=== PATIENT | female | born 1985 | race Caucasian/White ===

== ENCOUNTER → 2017-08-17 | Day surgery (SDC) | payer OTHER ==
[~2017-08-17] VITALS: Ht 175.3 cm; Wt 66.2 kg
[~2017-08-17] MED LIST: ACETAMINOPHEN500 M4 PO; AUGMENTIN 875 M1 TAB PO; BACTRIM DS 8001 TAB PO; BENTYL 10 MG CA10 MG PO; CANASA1000 MG RC; CLOBEX 125 ML125 ML TOP; CLOTRIMAZOLE-BE15 GM TOP; CORTIFOAM15 GM TOP; DESONIDE 0.05% TOP; DEXILANT60 M1 PO; DICYCLOMINE HCL10 M1 PO; FLONASE ALLERG9.9 ML NAS; LEVOTHYROXINE112 MCG PO; LEVOTHYROXINE125 MCG PO; LEVSIN/SL0.125 MG PO; LIDODERM1 EACH TOP; MULTIVITAMIN1 TAB PO; NITROFURANTOIN100 M6 PO; NYSTATIN100000 U/2 TOP; ONDANSETRON ODT4 MG PO; ORTHO EVRA TOP; PERCOCET 325 MG1 TA2 PO; PREDNISONE 10MG10 M1 PO; PREDNISONE 20MG20 MG PO; PRENATAL GUMMI1 EACH PO; PRENATAL TABLE1 EAC2 PO; RANITIDINE HCL75 MG PO; REMICADE100 MG INJ; REMICADE100 MG IV; TERCONAZOLE VG; TYLENOL #31 TAB PO; ULTRAM(MONOGRAP50 MG PO; VITAMIN D250000 UNIT PO; VITAMIN D31000 UNI2 PO; XULANE1 TDM TOP; [UNRECOGNIZED DRUG - OTHER] TOP
--- NOTE | 2017-08-17 09:15 | Operative Report ---
Operative/Inv Procedure Report Surgery Date: 08/17/17 Name of Procedure: seton removal perianal fistulotomy Pre-Operative Diagnosis: perianal Crohn's disease Post-Operative Diagnosis: same Estimated Blood Loss: scant Surgeon/Clinical Review Nurse: Aga Gonzalez MD Anesthesia: moderate sedation Specimens: seton Complications: None Condition: stable to PACU Operative Indication: A 32 year-old woman with perianal Crohn's disease, on Remicade, 6 weeks ago presents for removal of the soft tissue perianal seton drain and fistulotomy. There procedure was delayed because of her . All risks, benefits, and alternatives of the procedure were explained to the patient detai, and she expressed understanding and agreement with the same. Operative/Procedure Note Note: Patient was taken to the operating room and placed on the operating table. Anesthesia was established by the anesthesia team. Patient was placed in the lithotomy position with both legs in the candy canes. All appropriate pressure points were padded, and the patient was secured to the operating table. The perineum was prepped and draped in the standard surgical fashion. A timeout was carried out. A local block was achieved with 10 mL of plain 1% lidocaine. The seton was removed, and the incision was opened. The base of the fistula was cauterized to remove the granulation tissue. Hemostasis was achieved using electrocautery. The wound was packed with half an inch packing strip. A sterile dressing was applied. The sponge and instrument counts were correct in the end the procedure. The patient tolerated the procedure well, was wakened up and taken to recovery room in stable condition. Findings: left buttock perianal soft tissue fistula with a seton in place Discharge Disposition: home
== END ==
LOC: STS 02:32
DX: K60.3 Anal fistula (principal); K50.90 Crohn's disease, unspecified, without complications; E07.9 Disorder of thyroid, unspecified
CPT/HCPCS: 81025; J2250

== ENCOUNTER 2017-10-23 12:21 | Emergency (ER) | payer OTHER ==
[~2017-10-23] VITALS: Ht 175.3 cm; Wt 61.7 kg
--- NOTE | 2017-10-23 12:48 | ED CARDIAC/CP/PALPITATIONS ---
History of Present Illness General Chief Complaint: Chest Pain Stated Complaint: CP X24HRS RADIATING TO NECK AND BACK Source: patient, old records Exam Limitations: no limitations Vital Signs & Intake/Output Vital Signs & Intake/Output Vital Signs Date Time Temp Pulse Resp B/P B/P Pulse O2 O2 Flow FiO2 Mean Ox Delivery Rate 10/23 1414 73 18 108/66 100 Room Air Room Air 10/23 1232 97.0 82 20 95/67 100 Room Air Allergies Coded Allergies: alendronate sodium (From FOSAMAX) (Severe, BONE PAIN 03/13/17) bacitracin (From NEOSPORIN ([id number])) (Intermediate, RASH 09/17/15) neomycin (From NEOSPORIN ([id number])) (Intermediate, RASH 09/17/15) polymyxin B (From NEOSPORIN ([id number])) (Intermediate, RASH 09/17/15) latex (Mild, RASH 09/17/15) cefadroxil (SOB 09/17/15) ferrous fumarate (From FERRIMIN 150) (HIGH BP 08/02/17) iron (From FERRIMIN 150) (HIGH BP 08/02/17) mercaptopurine (RASH 09/17/15) Reconcile Medications Acetaminophen 500 MG TABLET 2 TAB PO PRN PAIN (Reported) Dexlansoprazole (Dexilant) 60 MG TERESA.BP 1 CAP PO BID GI (Reported) Ergocalciferol (Vitamin D2) (Vitamin D2) 50,000 UNIT CAPSULE 1 CAP PO QWED SUPPLEMENT (Reported) Infliximab (Remicade) (Unknown Strength) VIAL (Unknown Dose) INJ Q6W CROHNS ( Reported) Levothyroxine Sodium 112 MCG TABLET 1 TAB PO DAILY THYROID (Reported) Qsk342/FA/Omega3/Dha/Fish Oil ( Gummies) 400 MCG-32.5 MG (25 MG-7.5 MG) TAB.CHEW 2 TAB PO DAILY SUPPLEMENT (Reported) Triage Note: PT TO ED C/O LEFT SIDED C/P SINCE YESTERDAY. PAIN RADIATES TO LEFT ARM. C/O NAUSEA, DENIES V/D. ALSO C/O RIGHT CALF PAIN. STATES H/O ANEMIA. Triage Nurses Notes Reviewed? yes Onset: Abrupt Duration: day(s): (1), constant, waxing and waning Timing: recent history Quality/Severity: moderate, pressure Location: substernal Radiation: jaw, arms, back Activities at Onset: none Prior Chest Pain/Card Workup: no prior chest pain Nitro Today/Relief: no nitro taken today Aspirin Today: no aspirin today Associated Symptoms: NAUSEA : No Patient currently breastfeeds: No HPI: 32-year-old female with history of Crohn's disease, ankylosing spondylitis, hypothyroid presents to the ER for evaluation complaining of a one-day history of left-sided chest pain radiating up her neck into her back and down her arm. She denies history of similar symptoms in the past. She states the pain is a pressure sensation. It is not improved or worsened with position laying flat deep breath. No history of similar symptoms in the past. The patient denies any recent travel or immobility. No shortness of breath cough. She states she is recently getting over a sinus infection no recent antibiotic use. No hemoptysis numbness or tingling in her arms or legs. She also reports associated nausea. Pain is currently 5 out of 10. She is not taken anything for her. No family history of sudden cardiac disease that she is aware of. Past History Travel History Traveled to [place] past 21 day No Medical History Any Pertinent Medical History? see below for history Neurological: ANKYLOSING SPONDLITIS HOSHIMOTOS EENT: NONE Cardiovascular: NONE Respiratory: NONE Gastrointestinal: Crohns disease Hepatic: NONE Renal: NONE Musculoskeletal: NONE Psychiatric: NONE Endocrine: Ted's thyroiditis Blood Disorders: anemia Cancer(s): NONE SLURRY MAN/Reproductive: NONE History of MRSA: No History of VRE: No History of CDIFF: No Surgical History Surgical History: multiple I&D's of perianal abscesses Psychosocial History Who do you live with Mother Services at Home None What is your primary language Turkmen Tobacco Use: Quit >30 days ago ETOH Use: denies use Illicit Drug Use: denies illicit drug use Family History Family History, If Any: No Known Family History. Hx Contributory? No Review of Systems Review of Systems Constitutional: Reports: see HPI. Comments Review of systems: See HPI, All other systems negative. Constitutional, no chills no fever, HEENT: no sore throat no congestion, Cardiovascular: chest pain , no palpitation Skin: no rashes, no change in skin Respiratory: No dyspnea no cough no sputum no hemoptysis GI: nausea no vomiting, no diarrhea, no bloating/constipation Muscle skeletal: No joint pain, no back pain, no neck pain, Neurologic: , no headache Heme/endocrine: No bruising Immunology: No lymphadenopathy Physical Exam Physical Exam General Appearance: well developed/nourished, no apparent distress, alert, awake , comfortable Cardiovascular: regular rate/rhythm Comments: Well-developed well-nourished person in no acute distress HEENT: Normal EENT exam; PERRL, EOMI, HEAD is atraumatic. moist mucous membranes. Neck: Supple,normal range of motion Back: Nontender, Full range of motion Cardiovascular: Regular rate and rhythms no murmurs rubs or gallops, normal JVP Respiratory: Chest nontender.There were no bony deformities, no asymmetry. No respiratory distress. Patient speaking in full complete sentences. Breath sounds clear to auscultation bilaterally: NO W/R/R Abdomen: Soft, nontender nondistended Extremity: No edema, full range of motion of extremities, normal and equal pulses bilaterally, 5 out of 5 strength noted to bilateral upper and lower extremities Neuro: Alert oriented x3, motor sensory normal, There were no obvious focal neurologic abnormalities. Skin: No appreciable rash on exposed skin, skin is warm and dry. Psych: Mood and affect is normal, memory and judgment is normal. Core Measures ACS in differential dx? Yes CVA/TIA Diagnosis No Sepsis Present: No Sepsis Focused Exam Completed? No Progress Differential Diagnosis: AMI, atrial fibrillation, costochondritis, musculoskeletal pain, myocarditis, pericarditis, pneumonia, pneumothorax, pulmonary embolism, PUD/GERD, unstable angina Plan of Care: Orders Procedure Date/time Status Add-on Test (ER Only) 10/23 1300 Active D-DIMER 10/23 1245 Complete TROPONIN LEVEL 10/23 1223 Complete PROTHROMBIN TIME 10/23 1223 Complete HUMAN BETA HCG SCREEN 10/23 1223 Complete COMPREHENSIVE METABOLIC PANEL 10/23 1223 Complete CBC WITHOUT DIFFERENTIAL 10/23 1223 Complete EKG 10/23 1223 Active Laboratory Tests 10/23/17 1248: D-Dimer High Sensitivty Cancelled 10/23/17 1245: Anion Gap 13, Estimated GFR > 60, BUN/Creatinine Ratio 12.9, Glucose 99, Calcium 9.4, Total Bilirubin 0.4, AST 20, ALT 26, Alkaline Phosphatase 62, Troponin I < 0.01, Total Protein 8.3 H, Albumin 4.6, Globulin 3.7, Albumin/Globulin Ratio 1.2, Total Beta HCG NEGATIVE, PT 12.6 H, INR 1.15, D-Dimer High Sensitivty < 200, CBC w Diff NO MAN DIFF REQ, RBC 4.53, MCV 69.5 L, MCH 22.5 L, MCHC 32.3 L, RDW 17.7 H, MPV 7.8, Gran % 69.1, Lymphocytes % 19.5 L, Monocytes % 7.2, Eosinophils % 3.8, Basophils % 0.4, Absolute Granulocytes 7.8 H, Absolute Lymphocytes 2.2, Absolute Monocytes 0.8 H, Absolute Eosinophils 0.4, Absolute Basophils 0 Patient is declining anything for nausea when offered Tylenol ordered for pain rest in no acute distress. Repeat evaluation patient remains in no acute distress. I discussed with the patient at length all of their results.d-dimer negative. sx present greater then 24 hrs. I had an extensive conversation regarding need for close follow up with their primary care physician this week as well as return precautions. I answered all of their questions, they feel comfortable with the plan and follow-up care. Initial ED EKG: normal p-waves, normal QRS complex, normal sinus rhythm Departure Departure Time of Disposition: 1440 Disposition: HOME OR SELF CARE Condition: Stable Clinical Impression Primary Impression: Atypical chest pain Referrals: Shant CHILDRESS,Mahendra Ariza (PCP/Family) Additional Instructions: Follow-up with your primary care physician. Tylenol for pain. Return to emergency room at anytime sooner with any concerns. Departure Forms: Customer Survey General Discharge Information Critical Care Note Critical Care Note Critical Care Time: non-applicable
[2017-10-23 12:53] LABS: ABSOLUTE BASOPHIL COUNT 0 /CUMM (0.0-0.2); ABSOLUTE EOSINOPHIL COUNT 0.4 /CUMM (0.0-0.7); ABSOLUTE GRANULOCYTE CT 7.8 /CUMM (1.4-6.5); ABSOLUTE LYMPH COUNT 2.2 /CUMM (1.2-3.4); ABSOLUTE MONOCYTE COUNT 0.8 /CUMM (0.10-0.60); BASOPHIL % 0.4 % (0.0-2.0); EOSINOPHIL % 3.8 % (0-5); GRANULOCYTE % 69.1 % (42.2-75.2); HEMATOCRIT 31.5 % (37-47); MEAN CORPUSCULAR HGB 22.5 PG (27.0-31.0); MEAN CORPUSCULAR HGB CONC 32.3 G/DL (33.0-37.0); MEAN PLATELET VOLUME 7.8 FL (7.4-10.4); PLATELET COUNT 552 /CUMM (130-400); RBC DISTRIBUTION WIDTH 17.7 % (11.5-14.5); RED BLOOD CELL CT 4.53 /CUMM (4.20-5.40); WHITE BLOOD CELL COUNT 11.3 /CUMM (4.8-10.8)
[2017-10-23 12:57] LABS: MEAN CORPUSCULAR VOLUME 69.5 FL (81.0-99.0)
[2017-10-23 12:59] LABS: PT 12.6 SEC (9.4-12.5)
[2017-10-23 14:14] VITALS: BP 108/66
--- NOTE | 2017-10-23 14:34 | RADIOLOGY REPORT ---
EXAMINATION: XR CHEST CLINICAL INFORMATION: Rule out pathology. Chest pain and cough. COMPARISON: 11/30/2015. TECHNIQUE: 2 views of the chest were obtained. FINDINGS: There is chronic scarring in the right costophrenic sulcus. No consolidation or effusion to suggest pneumonia. The cardiomediastinal silhouette is within normal limits. Osseous structures unremarkable. Upper abdomen unremarkable. IMPRESSION: Chronic scarring at the right lung base. No focal pneumonia.
== END 2017-10-23 14:58 ==
LOC: ERH 12:21
PROVIDERS: Physician Assistant Medical
DX: R07.9 Chest pain, unspecified (principal)
CPT/HCPCS: 71046; 93005; 93010

== ENCOUNTER → 2018-02-06 | Day surgery (SDC) | payer OTHER ==
[~2018-02-06] VITALS: Ht 175.3 cm; Wt 63.5 kg
[~2018-02-06] MED LIST changes: +AUGMENTIN 875-1 EACH PO; +MIRALAX119 GM PO; +VICODIN 5-3001 EACH PO
--- NOTE | 2018-02-06 11:14 | Operative Report ---
Operative/Inv Procedure Report Surgery Date: 02/06/18 Name of Procedure: 1. Partial fistulotomy complex with placement of seton drain 2. Removal of 2 large anal skin tags Pre-Operative Diagnosis: 1. Anal fistula 2. Anal Crohn's disease Post-Operative Diagnosis: 1. Trans-sphincteric anal fistula 2. Quiesced and anal Crohn's disease 3. Anal skin tags Estimated Blood Loss: scant Surgeon/Calculation Reviewer: Liam Davidson Jr., DO Anesthesia: local monitored anesthesi, block Monitors: Per routine Drains: Seton drain placed within the fistula tract Specimens: Anal skin tag 2 Complications: None Condition: Good Operative Indication: This is a 32-year-old female with anal Crohn's disease. She has history of anal fistula. Repair of previous anal fistulas and developed a recurrent fistula in the same quadrant of the anal margin. She presents today for possible fistulotomy versus seton drain placement Operative/Procedure Note Note: Patient was taken to the operating room. She is placed in the prone jackknife position on the operating room table. IV sedation was initiated. Once the patient was comfortable the gluteal cleft was taped in the abducted position. The perineum was prepped and draped in usual fashion. An anal block was performed using 0.5% Marcaine with epinephrine. A total of 30 cc was injected. Next gentle digital exam was performed and then a Fansler operating proctoscope was placed into the anal canal. The anal and rectal mucosa appeared healthy and noninflamed. The fistula tract was fairly distant from the anal canal in the left anterior anal margin. A probe was placed through the tract and easily emerged at the dentate line. Next, partial fistulotomy was performed by dividing the tissue overlying the most external part of the fistula. I continue to divide the tissue until I began to encounter some of the subcutaneous fibers of the external anal sphincter. Next a Silastic rubber vessel loop was pulled through the tract to create a seton drain. The tails of the drain were tied together using heavy silk suture. Because there was no obvious disease activity I decided to excise 2 of the larger anal skin tag. The patient and I discussed this prior to surgery. She requested excision of the tags and we decided together I would only excise the tags if there was no significant disease activity. These skin tags were sharply excised and radial alignment with anal canal. The tissue was sent to pathology for routine evaluation. The base of the skin tags were then aggressively fulgurated with electrosurgical device. Once the bleeding was completely controlled the procedure was concluded. The perineum was cleansed and dried. Silvadene ointment and a bulky dressing was applied. The patient was converted to supine position. The patient tolerated procedure well. She was taken to the recovery area in good condition. At the end of this procedure all needle sponges and instruments were accounted for. Findings: Transsphincteric fistula No visible evidence of active proctitis/Crohn's disease Discharge Disposition: PACU
== END ==
LOC: STS 01-22 07:00
DX: K60.3 Anal fistula (principal); K50.811 Crohn's disease of both small and large intestine with rectal bleeding; K64.4 Residual hemorrhoidal skin tags; E03.9 Hypothyroidism, unspecified
CPT/HCPCS: 81025; J0131; J2250